=== PATIENT | female | born 1990 | race Caucasian/White ===

== ENCOUNTER → 2016-07-08 | Outpatient (CLI) | payer SELFPAY | END | disposition home or self-care (01) | LOC: RAD.S 10:55 | DX: R10.2 Pelvic and perineal pain (principal) ==

== ENCOUNTER 2016-09-06 15:20 | Emergency (ER) | payer SELFPAY ==
--- NOTE | 2016-09-07 01:40 | ER ---
ADMIT: 09/06/2016 RM/LOC: ER [facility] MR#: [id number] [facility] [address] [place], [place] [id number] [address] [place] [id number] Emergency Room Report SEX: F AGE: 26 : 1990 DATE: 09/06/2016 ADDENDUM: A 26-year-old female comes in with some left upper abdominal and left lower chest pain. She states she is doing some twisting and bending at work. On examination, she is in no distress. Heart has regular rate and rhythm. Lungs are clear to auscultation. She has no signs of crepitus, bruising, swelling, or skin changes. On palpation, she does have tenderness over the soft tissues of her lower chest and upper abdomen. The rest of her abdominal exam is completely benign. Bowel sounds are active and her vital signs are stable. I believe the patient has a muscle injury, probably muscle strain. She is given Toradol here and did have a little bit nausea afterwards, so was given some Zofran. She is discharged home to follow up with the regular physician with the diagnosis of abdominal wall pain. Mo Vieyra MD/ christina JOB #: [id number] CC: Miguel Ángel Segundo MD, Attending Physician Juana Cosby APRN-JEYSON, Family Physician
== END 2016-09-06 18:01 | disposition home or self-care (01) ==
LOC: ER 15:20
DX: R10.12 Left upper quadrant pain (principal); F17.210 Nicotine dependence, cigarettes, uncomplicated; Z88.2 Allergy status to sulfonamides; Z91.040 Latex allergy status